=== PATIENT | female | born 1990 | race African-American/Black ===

== ENCOUNTER 2019-06-22 22:51 | Inpatient (IN) ==
[2019-06-22] MEDS ORDERED: PROMETHAZINE 25 MG/1 ML VIAL IM PRN (23:25)
[2019-06-22] MEDS ORDERED: BUTORPHANOL 1 MG/ML VIAL IM ONE (23:25)
[2019-06-23] MEDS ORDERED: LACTATED RINGERS 500 ML IV PRN (00:49)
[2019-06-23] MEDS ORDERED: ONDANSETRON 4 MG/2 ML VIAL IV PRN (00:49)
[2019-06-23] MEDS ORDERED: LACTATED RINGERS 1,000 ML IV ONE (00:49)
[2019-06-23] MEDS ORDERED: LACTATED RINGERS 1,000 ML IV SCH (01:00)
[2019-06-23 01:21] LABS: Basophils % 0.2 % (0.0-0.8); Eosinophils % 0.3 % (0.00-10.9); Hematocrit 41.8 VOL% (35.7-47.0); Lymphocytes # 1.4 10*3/uL (1.4-4.0); Lymphocytes % 13.9 % (21.3-54.2); Mean Corpuscular HGB Conc 31.1 GM/DL (32-36); Mean Corpuscular Volume 90.1 FL (87-102); Mean Platelet Volume 11.3 FL (9.6-12.0); Monocytes % 6.7 % (1.7-12.7); Neutrophils % 77.9 % (38.7-73.9); Platelet Count 262 T/CUMM (130-400); Red Blood Count 4.64 MC/CUMM (3.8-5.5); White Blood Count 9.9 T/CUMM (4-12)
[2019-06-23 01:26] LABS: Apearance,Urine CLOUDY (Clear); Bacteria,Urine Occasional /HPF (Few); Bilirubin,Urine Negative (Negative); Blood, Urine Large mg/dL (Negative); Glucose,Urine (UA) Negative (Negative); Ketones,Urine Negative (Negative); Mucus,Urine Occasional /LPF (Occasional); Nitrite,Urine Negative (Negative); Protein,Urine Negative; RBC,Urine 11 /HPF (0-4); Squamous Epithelial Cell,Urine Few /HPF (0-10); Urine Color Yellow (Yellow); Urine Urobilinogen < 2.0 EU/DL (0.2-1.0); WBC,Urine 46 /HPF (0-6)
[2019-06-23] MEDS ORDERED: AMPICILLIN INJ 2,000 MG in SODIUM CHLORIDE 0.9% 100 ML IV ONE (01:30)
[2019-06-23 01:47] LABS: Alanine Aminotransferase 12 U/L (13-56); Albumin 2.7 G/DL (3.4-5.0); Alkaline Phosphatase 205 U/L (45-117); Aspartate Amino Transferase 13 U/L (0-37); Bilirubin,Total < 0.39 MG/DL (0.2-1.0); Blood Urea Nitrogen 5 MG/DL (7-18); Calcium 9.1 MG/DL (8.5-10.1); Estimated Glom Filtration Rate 145 ML/MIN; Glucose 81 MG/DL (74-106); Osmolality,Calculated 265.1 MOS/KG (273-304); Total Protein 7.2 G/DL (6.4-8.3)
[2019-06-23] MEDS ORDERED: BUTORPHANOL 1 MG/ML VIAL IV PRN (01:59)
[2019-06-23] MEDS ORDERED: diphenhydrAMINE 50 MG/1 ML VIAL IV PRN (02:08)
[2019-06-23] MEDS ORDERED: CITRIC ACID/SODIUM CITRATE 30 ML UDCUP PO ONE (02:08)
[2019-06-23] MEDS ORDERED: ONDANSETRON 4 MG/2 ML VIAL IV ONE (02:08)
[2019-06-23] MEDS ORDERED: PROMETHAZINE 25 MG/1 ML VIAL IM ONE (02:08)
[2019-06-23] MEDS ORDERED: NALOXONE 0.4 MG/ML VIAL IV PRN (02:08)
[2019-06-23] MEDS ORDERED: FAMOTIDINE 20 MG/2 ML VIAL IV ONE (02:08)
[2019-06-23] MEDS ORDERED: hydrOXYzine HCL 25 MG/1 ML VIAL IM PRN (02:08)
[2019-06-23] MEDS ORDERED: ePHEDrine 50 MG/ML AMP IV PRN (02:08)
[2019-06-23] MEDS ORDERED: fentaNYL 2 MCG/ROPIV 0.2% EPID 100 ML EPIDURAL SCH (02:30)
[2019-06-23] MEDS ORDERED: AMPICILLIN INJ 1,000 MG in SODIUM CHLORIDE 0.9% 100 ML IV SCH (05:30)
[2019-06-23] MEDS ORDERED: OXYTOCIN/LR 20 UNIT/1,000 ML BAG IV ONE ×2 (07:12→07:55)
[2019-06-23] MEDS ORDERED: IBUPROFEN 800 MG TABLET PO PRN (10:38)
[2019-06-23] MEDS: IBUPROFEN 800 MG TABLET PO PRN ×2 (10:40→21:43)
[2019-06-23] MEDS ORDERED: oxyCODONE/ACETAMINOPHEN 5-325 MG TABLET ONE (15:21)
[2019-06-23] MEDS: oxyCODONE/ACETAMINOPHEN 5-325 MG TABLET PO PRN ×2 (15:26→21:43)
[2019-06-23] MEDS: DOCUSATE SODIUM 100 MG CAPSULE PO SCH (21:43)
[2019-06-24 07:47] LABS: Basophils # 0.1 10*3/uL (0.0-0.2); Basophils % 0.4 % (0.0-0.8); Eosinophils # 0.1 10*3/uL (0.0-0.87); Hematocrit 36.3 VOL% (35.7-47.0); Hemoglobin 11.4 GM/DL (12.0-16.0); Immature Granulocytes Absolute 0.14 #; Lymphocytes # 2.6 10*3/uL (1.4-4.0); Lymphocytes % 19.6 % (21.3-54.2); Mean Corpuscular HGB Conc 31.4 GM/DL (32-36); Mean Corpuscular Volume 89.2 FL (87-102); Mean Platelet Volume 11.5 FL (9.6-12.0); Monocytes % 6.1 % (1.7-12.7); Neutrophils % 71.9 % (38.7-73.9); Platelet Count 203 T/CUMM (130-400); Red Blood Count 4.07 MC/CUMM (3.8-5.5); White Blood Count 13.5 T/CUMM (4-12)
[2019-06-24] MEDS: DOCUSATE SODIUM 100 MG CAPSULE PO SCH (08:18)
[2019-06-24] MEDS: oxyCODONE/ACETAMINOPHEN 5-325 MG TABLET PO PRN (08:19)
[2019-06-24] MEDS: IBUPROFEN 800 MG TABLET PO PRN (08:19)
[2019-06-24 15:15] VITALS: BP 117/69
== END 2019-06-24 15:00 | disposition home or self-care (01) | DRG 807 ==
LOC: N.LDOUT 22:51 → N.LD 22:55 → N.OB 06-23 11:49
PROVIDERS: ADMIT Obstetrics & Gynecology; ATTEND Obstetrics & Gynecology

== ENCOUNTER 2021-03-01 15:15 | Inpatient (IN) ==
[2021-03-01] MEDS ORDERED: SODIUM CHLORIDE 0.9% 2,000 ML IV STA (16:02)
[2021-03-01 16:22] LABS: Basophils % 0.2 % (0.0-0.8); Eosinophils % 0.1 % (0.00-10.9); Hematocrit 38.2 VOL% (35.7-47.0); Hemoglobin 11.9 GM/DL (12.0-16.0); Immature Granulocytes % 0.4 %; Immature Granulocytes Absolute 0.05 #; Lymphocytes # 2.3 10*3/uL (1.4-4.0); Mean Corpuscular HGB Conc 31.2 GM/DL (32-36); Mean Corpuscular Volume 90.1 FL (87-102); Mean Platelet Volume 11.4 FL (9.6-12.0); Monocytes % 6.4 % (1.7-12.7); Neutrophils % 75.9 % (38.7-73.9); Platelet Count 448 T/CUMM (130-400); Red Blood Count 4.24 MC/CUMM (3.8-5.5); Red Cell Distribution Width 13.2 % (9.3-17.3); White Blood Count 13.2 T/CUMM (4-12)
[2021-03-01 16:48] LABS: Alanine Aminotransferase 13 U/L (13-56); Albumin 3.8 G/DL (3.4-5.0); Alkaline Phosphatase 73 U/L (45-117); Aspartate Amino Transferase 19 U/L (0-37); Blood Urea Nitrogen 7 MG/DL (7-18); Calcium 9.5 MG/DL (8.5-10.1); Carbon Dioxide 20 MMOL/L (21-32); Estimated Glom Filtration Rate 108 ML/MIN; Glucose 173 MG/DL (74-106); Potassium 3.7 MMOL/L (3.5-5.1); Sodium 136 MMOL/L (136-145); Total Protein 8.3 G/DL (6.4-8.2)
[2021-03-01] MEDS ORDERED: ONDANSETRON 4 MG/2 ML VIAL IV ONE (17:18)
[2021-03-01] MEDS ORDERED: HYDROmorphone 2 MG/1 ML VIAL IV STA (17:18)
[2021-03-01] MEDS ORDERED: SODIUM CHLORIDE 0.9% 1,000 ML IV PRN (17:48)
[2021-03-01] MEDS ORDERED: fentaNYL 100 MCG/2 ML VIAL ONE (18:08)
[2021-03-01 18:21] LABS: Hemoglobin 10.1 GM/DL (12.0-16.0)
[2021-03-01] MEDS ORDERED: MIDAZOLAM 2 MG/2 ML VIAL ONE (18:27)
[2021-03-01] MEDS ORDERED: ceFAZolin 1,000 MG VIAL ONE (18:54)
[2021-03-01] MEDS ORDERED: LACTATED RINGERS 1,000 ML IV SCH (19:00)
[2021-03-01] MEDS ORDERED: PHENYLEPHRINE 1 MG/10 ML SYRINGE IV ONE ×2 (19:04→19:39)
[2021-03-01] MEDS ORDERED: ONDANSETRON 4 MG/2 ML VIAL ONE (19:04)
[2021-03-01] MEDS ORDERED: propofoL 200 MG/20 ML VIAL IV ONE (19:04)
[2021-03-01] MEDS ORDERED: ROCURONIUM 50 MG/5 ML VIAL IV ONE (19:04)
[2021-03-01] MEDS ORDERED: LIDOCAINE 2% 5 ML VIAL ONE (19:04)
[2021-03-01] MEDS ORDERED: DEXAMETHASONE 4 MG/1 ML VIAL ONE ×2 (19:04→20:27)
[2021-03-01] MEDS ORDERED: SEVOFLURANE 1 UNIT/15 MINUTE INH ONE ×2 (19:04→20:00)
[2021-03-01] MEDS ORDERED: ONDANSETRON 4 MG/2 ML VIAL IV PRN (19:15)
[2021-03-01] MEDS ORDERED: SODIUM CHLORIDE 0.9% 1,000 ML IV ONE (19:16)
[2021-03-01] MEDS ORDERED: NEOSTIGMINE 10 MG/10 ML VIAL ONE (19:30)
[2021-03-01 20:06] LABS: Bacteria,Urine Occasional /HPF (Few); Bilirubin,Urine Negative (Negative); Blood, Urine Negative (Negative); Glucose,Urine (UA) 50 mg/dL (Negative); Ketones,Urine 80 mg/dL (Negative); Mucus,Urine Few /LPF (Occasional); Nitrite,Urine Negative (Negative); Protein,Urine 100 MG/DL; RBC,Urine 1 /HPF (0-4); Squamous Epithelial Cell,Urine Occasional /HPF (0-10); Urine Appearance CLEAR (Clear); Urine Color Yellow (Yellow); Urine Specific Gravity 1.021 (1.001-1.035); Urine Urobilinogen < 2.0 EU/DL (<2.0)
[2021-03-01] MEDS ORDERED: ROPIVACAINE 0.5% 30 ML VIAL ONE (20:27)
[2021-03-01] MEDS: HYDROmorphone 2 MG/1 ML VIAL IV PRN ×4 (20:31→20:55)
[2021-03-01 20:35] LABS: Hematocrit 29.2 VOL% (35.7-47.0); Hemoglobin 8.9 GM/DL (12.0-16.0)
[2021-03-02] MEDS ORDERED: SIMETHICONE CHEW 80 MG TABLET PO PRN (00:23)
[2021-03-02] MEDS ORDERED: ALUMINUM/MAGNES/SIMETH MAX STR 30 ML UDCUP PO PRN (00:24)
[2021-03-02 05:39] LABS: Basophils % 0.1 % (0.0-0.8); Hematocrit 26.2 VOL% (35.7-47.0); Hemoglobin 8.2 GM/DL (12.0-16.0); Immature Granulocytes % 0.5 %; Immature Granulocytes Absolute 0.08 #; Lymphocytes # 0.8 10*3/uL (1.4-4.0); Lymphocytes % 5.2 % (21.3-54.2); Mean Corpuscular HGB Conc 31.3 GM/DL (32-36); Mean Corpuscular Volume 90.3 FL (87-102); Mean Platelet Volume 11.5 FL (9.6-12.0); Monocytes % 1.9 % (1.7-12.7); Neutrophils % 92.3 % (38.7-73.9); Platelet Count 311 T/CUMM (130-400); Red Cell Distribution Width 13.2 % (9.3-17.3); White Blood Count 15.8 T/CUMM (4-12)
[2021-03-02 06:18] LABS: Anisocytosis 1+; Band Neutrophils 9 % (0-10); Lymphocytes 4 % (20-55); Macrocytosis Slight; Platelet Estimate Normal; Segmented Neutrophils 85 % (50-85); Total Cells Counted 100
[2021-03-02] MEDS: IRON (CARBONYL)/VIT C/B12/FA TABLET PO SCH (09:07)
[2021-03-02] MEDS: DOCUSATE SODIUM 100 MG CAPSULE PO SCH ×2 (09:07→21:03)
[2021-03-02] MEDS: MAGNESIUM HYDROXIDE SUSP 30 ML UDCUP PO PRN ×2 (11:17→21:03)
[2021-03-02] MEDS ORDERED: BISACODYL 10 MG SUPP RECTAL PRN (15:23)
[2021-03-02] MEDS ORDERED: DOCUSATE SODIUM 100 MG CAPSULE PO SCH (21:00)
[2021-03-03] MEDS ORDERED: MAGNESIUM CITRATE 300 ML BOTTLE PO ONE (07:11)
[2021-03-03] MEDS: IRON (CARBONYL)/VIT C/B12/FA TABLET PO SCH (09:34)
[2021-03-03] MEDS: DOCUSATE SODIUM 100 MG CAPSULE PO SCH (09:34)
[2021-03-03 13:08] VITALS: BP 122/62
== END 2021-03-03 18:15 | disposition home or self-care (01) | DRG 817 ==
LOC: N.EDINP 15:15 → N.ED 15:15 → N.LD 15:16
PROVIDERS: ADMIT Obstetrics & Gynecology; ATTEND Obstetrics & Gynecology